=== PATIENT | male | born 1960 | race Caucasian/White ===

== ENCOUNTER 2017-03-20 15:55 | Inpatient (IN) | payer MEDICARE ==
[2017-03-20] MEDS ORDERED: IOPAMIDOL 370 (76%) 100 ML VIAL IV ONE (15:56)
[2017-03-20 16:48] LABS: ABSOLUTE NEUTROPHIL COUNT 13.7 K/mm3 (1.8-7.7); BASO # 0.1 K/mm3 (0.0-0.2); BASO % 0.4 % (0.2-1.0); HEMATOCRIT 41.8 % (32.0-52.0); HEMOGLOBIN 14.5 gm/l (14.0-18.0); IMM NEUT # 0.1 K/mm3 (0-0.2); IMM NEUT% 0.6 % (0-1); LYMPH # 1.5 (1.0-4.8); LYMPH % 9.2 % (15-45); MEAN CELL VOLUME 83.4 fl (80.0-94.0); MEAN CORPUSCULAR HEMOGLOBIN 28.9 pg (27.0-31.0); MEAN CORPUSCULAR HGB CONC 34.7 g/dl (33.0-37.0); MEAN PLATELET VOLUME 10.4 fl (7.4-10.4); MONO # 0.8 (0.0-0.8); NEUT % 84.8 % (43-75); PLATELET COUNT 327 K/mm3 (130-400)
[2017-03-20] MEDS ORDERED: LACTATED RINGERS 1,000 ML ONE ×2 (16:49→18:06)
[2017-03-20] MEDS ORDERED: ONDANSETRON 4 MG/2ML 2 ML VIAL ONE (16:49)
[2017-03-20] MEDS ORDERED: HYDROMORPHONE HCL 1 MG/ML SYRINGE ONE (16:57)
[2017-03-20 16:59] LABS: VENOUS BLOOD GAS BASE EXCESS -3.9 mmol/L (-2.0-2.0); VENOUS BLOOD GAS HCO3 22.1 mmol/L (22.0-27.0)
[2017-03-20 17:01] LABS: ALB/GLOB RATIO 1.4 (>1.0); ALBUMIN 4.5 gm/dL (3.5-5.7); CALCIUM 9.6 mg/dL (8.6-10.3)
[2017-03-20 17:01] LABS: URINE APPEARANCE CLEAR; URINE BILIRUBIN NEGATIVE (NEGATIVE); URINE BLOOD 2+ (NEGATIVE); URINE COLOR YELLOW; URINE GLUCOSE (UA) 3+ (NEGATIVE); URINE LEUKOCYTE ESTERASE NEGATIVE (NEGATIVE); URINE NITRITE NEGATIVE (NEGATIVE); URINE PROTEIN 2+ (NEGATIVE); URINE UROBILINOGEN NORMAL (0-1 mg/dl)
[2017-03-20 17:18] LABS: URINE BACTERIA TRACE; URINE EPITHELIAL CELLS FEW /hpf; URINE WBC RARE /hpf
--- NOTE | 2017-03-20 17:32 | CT ---
Exam Type: ABD/PELVIS W/ CON Date and Time: 03/20/2017 4:49 PM Clinical information: Abdomen pain with nausea and vomiting. Comparison: 06/14/2016. Procedure: Imaging device: [employer] [address] scanner 1 mm axial images were obtained through the abdomen and pelvis. Stacked reconstructed 3, 4 and 5 mm images were photographed in the axial coronal and sagittal planes. No oral contrast was utilized for this examination. 100 ml of Isovue-370 was injected intravenously. Exam: with intravenous contrast. FINDINGS: Lung bases:The visualized lung bases appear to be appropriate with no mass, effusion or consolidation visualized. Liver: There is note made of biliary prominence within the central aspect of the right hepatic lobe, similar to the appearance on previous examination. Spleen: The spleen is homogeneous and does not appear to be enlarged. Gallbladder: Normal without enlargement or evidence of adjacent inflammatory changes. Pancreas: A significant dystrophic calcification of the pancreatic body and tail is present suggesting findings of chronic pancreatitis. The appearance is similar to that seen on prior examination. Adrenal glands: Normal without enlargement or evidence of adjacent inflammatory changes. Abdominal aorta: Dense atherosclerotic vascular calcification is present. There is no focal aneurysm visualized. Kidneys: The peripheral renal contour is somewhat irregular which may reflect areas of parenchymal scarring. A low-attenuation focus extending posteriorly from the right kidney is slight increase in size when compared to the prior exam though may reflect a renal cyst. No evidence of hydronephrosis is seen. Bowel structures: There are postsurgical changes identified with bowel suture seen involving the colon within the right quadrant. No definite evidence to suggest obstruction is currently visualized. There is moderate fluid distention of the stomach noted. A loop of bowel is identified extending into the patient's umbilical hernia best seen on axial image 56. Appendix: Likely absent. Bladder: The bladder is of normal contour. No wall thickening or significant distention is observed. Hernia: Fat filled bilateral inguinal hernias are also visualized, left greater than right. Adenopathy: No significant enlarged adenopathy is visualized. Osseous structures: Multilevel lumbar discogenic degenerative changes are present at all lumbar levels. Pelvic structures: No discrete pelvic abnormalities are visualized in this examination. IMPRESSION: 1. A fat filled umbilical hernia with extension of a bowel loop into the hernia sac. No associated obstruction is visualized. 2. Postsurgical changes suggesting prior partial colectomy. The appendix is likely surgically absent. 3. Moderate fluid distention of the stomach. 4. Irregularity of the peripheral contour of both kidneys which may reflect areas of renal scarring. 5. A low-attenuation focus along the posterior aspect of the right kidney, increased from the prior examination. The attenuation values are indeterminate. Ultrasonographic correlation is recommended to exclude a solid mass. 6. Fat filled bilateral inguinal hernias, left greater than right. 7. Stable prominence of the central intrahepatic biliary tree. 8. Numerous dystrophic pancreatic calcifications suggesting chronic pancreatitis, also stable from the prior exam. 9. A 3.1 cm fluid collection within the subcutaneous tissues of the anterior left lower chest, likely a sebaceous cyst. 10. Multilevel lumbar degenerative changes.
[2017-03-20] MEDS ORDERED: INSULIN REGULAR HUMAN (DOSE) 100 UNITS/1 ML ONE (18:42)
[2017-03-20] MEDS ORDERED: MENTHOL/CETYLPYRD 1 EACH LOZENGE PO PRN (19:32)
[2017-03-20] MEDS ORDERED: BLISTEX LIPSTICK 1 EACH TP PRN (19:32)
[2017-03-20] MEDS ORDERED: SODIUM CHLORIDE 0.9% 100 ML IV PRN (19:32)
[2017-03-20 20:21] VITALS: BMI 25.7
[2017-03-20] MEDS ORDERED: PUMP TUBING ONE (20:45)
[2017-03-20] MEDS: PANTOPRAZOLE SODIUM 40 MG VIAL IV SCH (20:52)
[2017-03-20] MEDS: MORPHINE SULFATE 2 MG/ML SYRINGE IV PRN ×2 (20:52→23:17)
[2017-03-20] MEDS: ONDANSETRON 4 MG/2ML 2 ML VIAL IV PRN (20:52)
[2017-03-20] MEDS: NS/Potassium Chlor 20 mEq 1,000 ML IV SCH (20:52)
[2017-03-20] MEDS ORDERED: IV START KIT ONE ×2 (21:37→23:55)
[2017-03-20] MEDS: INSULIN ASPART (DOSE) 100 UNITS/1 ML SUB-Q PRN (23:29)
[2017-03-21] MEDS: MORPHINE SULFATE 2 MG/ML SYRINGE IV PRN ×5 (00:47→22:01)
[2017-03-21] MEDS: ONDANSETRON 4 MG/2ML 2 ML VIAL IV PRN (01:04)
[2017-03-21 06:30] LABS: ABSOLUTE NEUTROPHIL COUNT 12.2 K/mm3 (1.8-7.7); BASO # 0.1 K/mm3 (0.0-0.2); BASO % 0.4 % (0.2-1.0); EOS # 0.1 (0.0-0.5); EOS % 0.5 % (0.9-2.9); HEMATOCRIT 39.7 % (32.0-52.0); HEMOGLOBIN 13.7 gm/l (14.0-18.0); IMM NEUT # 0.2 K/mm3 (0-0.2); IMM NEUT% 0.9 % (0-1); LYMPH # 2.9 (1.0-4.8); LYMPH % 17.3 % (15-45); MEAN CELL VOLUME 83.8 fl (80.0-94.0); MEAN CORPUSCULAR HEMOGLOBIN 28.9 pg (27.0-31.0); MEAN CORPUSCULAR HGB CONC 34.5 g/dl (33.0-37.0); MEAN PLATELET VOLUME 10.2 fl (7.4-10.4); MONO # 1.4 (0.0-0.8); MONO % 8.1 % (4-12); NEUT % 72.8 % (43-75); PLATELET COUNT 298 K/mm3 (130-400); RED CELL DISTRIBUTION WIDTH 12.9 % (11.5-14.5)
[2017-03-21 06:46] LABS: ALB/GLOB RATIO 1.4 (>1.0); ALBUMIN 3.9 gm/dL (3.5-5.7); CALCIUM 9.3 mg/dL (8.6-10.3)
--- NOTE | 2017-03-21 06:50 | US ---
Name: DENIA TORRES Exam: Ultrasound right kidney Comparison: 06/24/2012 Clinical history: Indeterminant right renal nodule on CT dated 03/20/2017 Findings: Ultrasound of the right kidney was performed. Kidney size is within normal limits at 10.0 x 6.3 x 6.0 cm. Resistive index is mildly increased at 0.78. Off of the posterior lateral margin of the right kidney, there is a 2.8 x 2.5 x 2.1 cm oval vascular structure which is nearly isoechoic to adjacent renal parenchyma. Kidney is quite lobulated. Given the associated blood flow, solid renal mass must be excluded. This does not represent a cyst. MRI with contrast would be helpful for further characterization. Impression: 2.8 x 2.5 x 2.1 cm solid right renal lesion consistent with recent CT. Neoplastic lesion must be excluded. MRI with contrast would be helpful. Note: Findings were discussed between Jaqui and Dr. Strickland at 0128 hours .
[2017-03-21] MEDS: NS/Potassium Chlor 20 mEq 1,000 ML IV SCH (07:08)
--- NOTE | 2017-03-21 07:40 | PDOC43 ---
- Subjective Chief Complaint: abdominal pain Abdominal pain is better and nausea has resolved. Very thirsty but no BM or passing gas. - Objective Vital Signs Temperature 97.9 F 03/21/17 01:20 Pulse Rate 86 03/21/17 01:20 Respiratory Rate 18 03/21/17 01:42 Blood Pressure 152/80 03/21/17 01:20 O2 Saturation by Pulse Oximetry 95 03/21/17 01:20 Oxygen Delivery Method Room Air Oxygen Flow Rate 0 Intake and Output 03/20/17 03/21/17 03/22/17 06:59 06:59 06:59 Intake Total 150 Output Total 450 Balance -300 General: Alert, Oriented x3, Cooperative, No Acute Distress HEENT: Mucous membr. moist/pink Lungs: Clear to Auscultation Bilaterally Cardiovascular: Regular Rate and Rhythm Abdomen: Soft, Tenderness (mild), Masses (soft umbilical hernia), Normal Bowel Sounds Extremities: Normal Pulses, No Edema Skin: Normal Color Neurological: Normal Speech Psych/Mental Status: Normal Mood Laboratory 03/21/17 05:30 03/21/17 05:30 03/21/17 03/21/17 03/20/17 05:30 03:18 23:24 Anion Gap 17 H POC Capillary Glucose 149 H 227 H Current Medications: Current meds reviewed in EMR. - Problems: Assessment/Plan (1) Abdominal pain, acute Status: AcuteAssessment/Plan: Acute on chronic abdominal pain with nausea and vomiting in setting of chronic short gut syndrome. No evidence of acute bowel obstruction. Improved, advance diet slowly. (2) SIRS (systemic inflammatory response syndrome) Status: AcuteAssessment/Plan: Appears to be due to acute on chronic abdominal pain and uncontrolled diabetes. No evidence of acute infectious process. WBC remains elevated but no fever, tachycardia or tachypnea today. (3) Short bowel syndrome Status: ChronicAssessment/Plan: Associated with chronic diarrhea and chronic abdominal pain. No BM for two days. (4) Diabetes type 2, uncontrolled Qualifiers: Diabetes mellitus complication status: with neurologic complications Diabetes mellitus complication detail: with polyneuropathy Diabetes mellitus intermediate school teacher insulin use: with intermediate school teacher use Qualifier Code: (E11.42) Type 2 diabetes mellitus with diabetic polyneuropathy Status: Chronic Assessment/Plan: [id number] due to inadequate insulin treatment (one dose once a day and unsure what insulin was being used). Start lantus, continue aspart and adjust as indicated. (5) HTN (hypertension), benign Status: ChronicAssessment/Plan: untreated, start lisinopril (6) Kidney mass Status: AcuteAssessment/Plan: f/u ultrasound remains abnormal with suggestion of malignancy. MRI ordered for tomorrow, given patient's history of medical non-compliance, he is not likely to get this done if deferred to outpatient f/u. (7) Medically noncompliant Status: ChronicAssessment/Plan: Complicates care. He needs to be re-established with PCP and case management through PCP office. (8) Anxiety disorder Qualifiers: Anxiety disorder type: generalized anxiety disorder Qualifier Code: ( F41.1) Generalized anxiety disorder Status: ChronicAssessment/Plan: Stable, but may need PRN lorazapam. VTE Prophylaxis: mechanical only due to the possibility of needing urgent abdominal surgery. Disposition: Likely home in 1-2 days.
[2017-03-21] MEDS: INSULIN ASPART (DOSE) 100 UNITS/1 ML SUB-Q PRN ×2 (08:18→18:26)
[2017-03-21] MEDS: INSULIN GLARGINE (DOSE) 100 UNITS/ML UNIT SUB-Q SCH (08:18)
[2017-03-21] MEDS: LISINOPRIL 10 MG TABLET PO SCH (08:19)
--- NOTE | 2017-03-21 10:25 | HP ---
DENIA CASILLAS [id number] DATE OF : 1960 DATE OF ADMISSION: 03/20/2017 IDENTIFICATION: Mr. Casillas is a 56-year-old patient of Dr. Cisneros. He was last hospitalized 06/14/2016. He had one follow up visit at [facility] in July and has not been back. CHIEF COMPLAINT: Abdominal pain. HISTORY OF PRESENT ILLNESS: Mr. Casillas has chronic abdominal pain, but reports that it has been much worse for the last 2 weeks. It is a cramping pain that comes and goes, but today he has had pain severe enough that he is not able to sit still. He has had nausea and vomited about 1630. He has chronic diarrhea. His last bowel movement was yesterday and was black, but otherwise bowels have been normal per his pattern. He does feel like he has had some chills, but not documented fever. He was evaluated in the emergency department, and found to have hyperglycemia, and elevated white blood cell count. CT scan of the abdomen did not show an acute bowel obstruction, but due to his abdominal pain and abnormal laboratories he was referred to the Hospitalist service. REVIEW OF SYSTEMS: HEENT: He does report feeling faint, no loss of consciousness, chronic hearing loss. Respiratory: He reports some dyspnea, no cough. Cardiac: No chest pain or palpitations. Gastrointestinal: A per history of present illness. Genitourinary: No dysuria, or urgency. He has had frequent urination, but some urinary hesitancy. Musculoskeletal: No specific complaints. Constitutional: Chills. No documented fever. He thinks he has lost 10 pounds recently. PAST MEDICAL HISTORY: 1. Diabetes mellitus type 2, uncontrolled and complicated by peripheral neuropathy. 2. Benign essential hypertension. 3. Hyperlipidemia. 4. 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 5. Generalized anxiety disorder. 6. Osteoarthritis. 7. Dyslipidemia. 8. Chronic kidney disease borderline between stage II and III with a baseline creatinine of 1.1 to 1.3. This is presumably secondary to this diabetes. PAST SURGICAL HISTORY: 1. Multiple abdominal surgeries and partial colectomies associated with necrotizing enteritis as an . 2. Small-bowel resection perforation and peritonitis in December [address] Marco A Cantor. 3. Exploratory laparotomy. 4. Right foot surgery after crush injury in 2002. 5. Upper and lower endoscopy done by Dr. Layne in 2013. ALLERGIES: NONE KNOWN. MEDICATIONS: He does say his son is giving him a dose of insulin once a day. He does not know what kind of insulin, or how much. He wonders if it is the wrong kind of insulin. He is otherwise out of medications, and not taking anything else. HABITS: He has an extensive smoking history, but quit smoking 2 years ago and has not used tobacco since then. He denies alcohol use. He does smoke marijuana. SOCIAL HISTORY: He is . He lives with his son in [place]. He is disabled. FAMILY HISTORY: Mother had ovarian cancer. His brother had a pulmonary embolism. PHYSICAL EXAMINATION: GENERAL: This is an agitated uncomfortable gentleman. He looks much older than his 56 years. VITAL SIGNS: Temperature is 98.3 degrees Fahrenheit. Pulse is 107. Blood pressure is elevated at 193/96. Respiratory rate is 18. Oxygen saturation is 96% on room air. HEENT: Pupils equal, round, and reactive. Extraocular muscles intact. Mild exophthalmus. Oropharynx: Poor dentition. CHEST: Clear to auscultation. HEART: Regular, no murmur. ABDOMEN: Soft with diffuse mild tenderness. No guarding, or rebound. Extensive scaring from his previous surgeries, easily reducible umbilical hernia. EXTREMITIES: Good dorsalis pedis pulses. No edema. NEUROLOGIC: He is alert and oriented with no focal deficits. LABORATORY DATA: White blood cell count is 16.1 with 85% neutrophils, hemoglobin and hematocrit 14.5 and 41.8, and platelets 237. Venous blood gas: pH 7.326, pCO2 of 43.2, pO2 27.9, and lactate 1.9. Sodium is 135, potassium 3.7, chloride 96, CO2 of 22, BUN 14, creatinine 1.3, and glucose 508. Alkaline phosphatase is 107. Liver enzymes are otherwise normal. Albumin is 4.5. Lipase is normal at 17. Urinalysis with specific gravity of 1.020, 2+ protein, 3+ glucose, 2+ ketones, 2+ blood, negative microscopic. DIAGNOSTIC IMAGIN. CT scan of the abdomen and pelvis shows fat filled umbilical hernia with bowel loop in the hernia sac, but not obstruction. Postsurgical changes, moderate fluid distention of the stomach, irregular peripheral contour of both kidneys with low attenuation focus on the right kidney, ultrasound follow up recommended. Fat filled bilateral inguinal hernias, stable prominence of intrahepatic biliary tree, evidence of chronic pancreatitis stable. A left chest sebaceous cyst, and multiple level lumbar degenerative changes. ASSESSMENT: Mr. Casillas is a 56-year-old with medical noncompliance who presents with an exacerbation of chronic abdominal pain, diabetes out of control, and resulting in anion gap acidosis. He has systemic inflammatory response syndrome secondary to the out of control diabetes, but I do not see evidence of an acute infectious process. His chronic hypertension is out of control, and he has a kidney mass of uncertain behavior. PLAN: 1. Admit to med surge. 2. Nothing by mouth status, follow laboratories and abdominal exam. 3. Analgesic and antiemetic medication as necessary. 4. IV hydration and insulin to control blood sugar. 5. Renal ultrasound to follow up on the abnormality seen on CT scan. 6. Physical and occupational therapy evaluation and treatment. 7. Dietary consultation. 8. FULL CODE status. 9. Venous thromboembolism risk is moderate, but we will use mechanical prophylaxis as he could potentially need surgery. 10. Social work consult and he will need to be reestablished with primary care and with the care management program through the clinic hopefully to improve his follow up, and compliance. BRENDA/jaci
[2017-03-21] MEDS ORDERED: ACETAMINOPHEN 500 MG TABLET PO PRN (12:40)
[2017-03-21] MEDS ORDERED: ACETAMINOPHEN 500 MG TABLET ONE (12:42)
[2017-03-21] MEDS: PANTOPRAZOLE SODIUM 40 MG VIAL IV SCH (22:00)
[2017-03-22] MEDS: NS/Potassium Chlor 20 mEq 1,000 ML IV SCH ×5 (00:34→11:49)
[2017-03-22] MEDS: MORPHINE SULFATE 2 MG/ML SYRINGE IV PRN ×3 (06:16→20:29)
[2017-03-22 06:33] LABS: ABSOLUTE NEUTROPHIL COUNT 6.2 K/mm3 (1.8-7.7); BASO # 0.1 K/mm3 (0.0-0.2); EOS # 0.1 (0.0-0.5); EOS % 1.3 % (0.9-2.9); HEMATOCRIT 37.9 % (32.0-52.0); HEMOGLOBIN 12.6 gm/l (14.0-18.0); IMM NEUT # 0.1 K/mm3 (0-0.2); IMM NEUT% 1.3 % (0-1); LYMPH # 1.8 (1.0-4.8); LYMPH % 19.8 % (15-45); MEAN CELL VOLUME 85.7 fl (80.0-94.0); MEAN CORPUSCULAR HEMOGLOBIN 28.5 pg (27.0-31.0); MEAN CORPUSCULAR HGB CONC 33.2 g/dl (33.0-37.0); MONO # 0.7 (0.0-0.8); MONO % 8.2 % (4-12); NEUT % 68.4 % (43-75); PLATELET COUNT 283 K/mm3 (130-400); RED CELL DISTRIBUTION WIDTH 13.5 % (11.5-14.5)
[2017-03-22 06:59] LABS: CALCIUM 8.6 mg/dL (8.6-10.3)
[2017-03-22] MEDS: INSULIN ASPART (DOSE) 100 UNITS/1 ML SUB-Q PRN ×4 (07:37→21:13)
[2017-03-22] MEDS: LISINOPRIL 10 MG TABLET PO SCH ×2 (07:37→09:36)
[2017-03-22] MEDS: INSULIN GLARGINE (DOSE) 100 UNITS/ML UNIT SUB-Q SCH (09:35)
[2017-03-22] MEDS: PANTOPRAZOLE SODIUM 40 MG VIAL IV SCH (20:28)
--- NOTE | 2017-03-22 23:31 | PDOC43 ---
- Subjective Chief Complaint: abdominal pain Subjective: Reports Pain Tolerable, Reports Tolerating Diet Well - Objective Vital Signs Temperature 99.3 F 03/22/17 20:37 Pulse Rate 89 03/22/17 20:37 Respiratory Rate 16 03/22/17 20:37 Blood Pressure 165/95 03/22/17 20:37 O2 Saturation by Pulse Oximetry 96 03/22/17 20:37 Oxygen Delivery Method Room Air Oxygen Flow Rate 0 Intake and Output 03/21/17 03/22/17 03/23/17 06:59 06:59 06:59 Intake Total 150 3054 Output Total 450 1850 Balance -300 1204 General: Alert, Oriented x3, Cooperative, No Acute Distress HEENT: Mucous membr. moist/pink Lungs: Clear to Auscultation Bilaterally Cardiovascular: Regular Rate and Rhythm Abdomen: Soft, Normal Bowel Sounds, Non-Distended, No Tenderness Extremities: No Edema Laboratory 03/22/17 05:30 03/22/17 05:30 03/22/17 03/22/17 03/22/17 20:53 18:09 11:40 RBC POC Capillary Glucose 256 H 181 H 238 H % Immature Granulocyt 03/22/17 03/22/17 07:25 05:30 RBC 4.42 L POC Capillary Glucose 191 H % Immature Granulocyt 1.3 H Current Medications: Current meds reviewed in EMR. - Problems: Assessment/Plan (1) Abdominal pain, acute Status: AcuteAssessment/Plan: Acute on chronic abdominal pain with nausea and vomiting in setting of chronic short gut syndrome. No evidence of acute bowel obstruction. Improved, advance diet slowly. (2) Kidney mass Status: AcuteAssessment/Plan: f/u ultrasound remains abnormal with suggestion of malignancy. MRI ordered for today, given patient's history of medical non-compliance, he is not likely to get this done if deferred to outpatient f/u. Result is pending (3) Short bowel syndrome Status: ChronicAssessment/Plan: Associated with chronic diarrhea and chronic abdominal pain. No BM for two days. (4) SIRS (systemic inflammatory response syndrome) Status: AcuteAssessment/Plan: Appears to be due to acute on chronic abdominal pain and uncontrolled diabetes. No evidence of acute infectious process. WBC improved and no fever, tachycardia or tachypnea today. (5) Diabetes type 2, uncontrolled Qualifiers: Diabetes mellitus complication status: with neurologic complications Diabetes mellitus complication detail: with polyneuropathy Diabetes mellitus alf insulin use: with alf use Qualifier Code: (E11.42) Type 2 diabetes mellitus with diabetic polyneuropathy Status: Chronic Assessment/Plan: [id number] due to inadequate insulin treatment (one dose once a day and unsure what insulin was being used). Started lantus, continue aspart and adjust as indicated. Will need to educate his son on insulin administration and correction scale but no family has shown up today. (6) HTN (hypertension), benign Status: ChronicAssessment/Plan: untreated, start lisinopril (7) Medically noncompliant Status: ChronicAssessment/Plan: Complicates care. He needs to be re-established with PCP and case management through PCP office. (8) Anxiety disorder Qualifiers: Anxiety disorder type: generalized anxiety disorder Qualifier Code: ( F41.1) Generalized anxiety disorder Status: ChronicAssessment/Plan: Stable, but may need PRN lorazapam in hospital - consider ssri at discharge. VTE Prophylaxis: mechanical only due to the possibility of needing urgent abdominal surgery. Disposition: Likely home in am
[2017-03-23] MEDS: NS/Potassium Chlor 20 mEq 1,000 ML IV SCH ×2 (00:15→04:59)
[2017-03-23] MEDS: MORPHINE SULFATE 2 MG/ML SYRINGE IV PRN (06:00)
[2017-03-23 08:07] VITALS: BP 114/79
[2017-03-23] MEDS: LISINOPRIL 10 MG TABLET PO SCH (08:09)
[2017-03-23] MEDS: INSULIN ASPART (DOSE) 100 UNITS/1 ML SUB-Q PRN (08:10)
[2017-03-23] MEDS ORDERED: INSULIN GLARGINE (DOSE) 100 UNITS/ML UNIT SUB-Q SCH (09:00)
--- NOTE | 2017-03-23 11:41 | MRI ---
EXAMINATION: Abdominal MRI without and with contrast. CLINICAL INDICATION: Assess renal mass. COMPARISON: Prior CT scan dated 03/20/2017. TECHNIQUE: Pre and dynamic post contrast evaluation of the abdomen was performed on a 1.5 Olga Lidia scanner. The following sequences were obtained: Axial and Coronal T1 and T2 Weighted Images were acquired. Axial diffusion weighted sequence images were acquired. Fat suppressed T1 weighed axial and coronal dynamic images were obtained. A total of 20 ml of MultiHance was administered intravenously. Image quality is of limited diagnostic value. Multiple images are are degraded due to motion artifact. Also postcontrast images were not obtained dynamically. Patient needed multiple bathroom breaks. FINDINGS: The posterior upper pole the right kidney and there is an exophytic lesion that measures 1.9 x 2.0 cm. This exhibits low T2 signal character 6 and intermediate T1 signal changes. Following medication and contrast this appears to exhibit early arterial enhancement with some enhancing septations suggested centrally. Some peripheral nodularity is suggested as well. The remainder the renal cortices are otherwise unremarkable and similar the prior CT scans. Lobulation is noted. Small cortical cyst involves the posterior aspect of the lower pole the left kidney as well. A retroaortic left renal vein is noted. Visualized segments of the bladder on the coronal images appear grossly unremarkable. Minimal atherosclerotic changes of abdominal aorta are evident. There is no adjacent adenopathy appreciated. The adrenals are unremarkable. The liver, biliary system, spleen, and pancreas are within normal limits. No free fluid is identified. The osseous structures are within normal limits. Resolution of the overlying soft tissues are limited due to motion artifact. IMPRESSION: Limited evaluation due to motion artifact and limited dynamic enhancement. There is apparent enhancement of the lesion within the right lower pole measuring up to 2 cm in diameter. Findings are suspicious for neoplasm. Enhancing septation of a proteinaceous cyst though considered less likely may give a similar appearance. A retroaortic left renal vein is noted. No periaortic adenopathy is identified. There is no gross evidence of metastatic lesions involving the abdomen. As a multiphase dynamic renal CT scan can be acquired more rapidly, this should be considered for further evaluation of this lesion. This would reduce motion artifact.
--- NOTE | 2017-03-23 12:47 | DS ---
Devendra Casillas DATE OF ADMISSION: 03/20/2017 DATE OF DISCHARGE: 03/23/2017 DISCHARGE DIAGNOSES: 1. Uncontrolled adult onset diabetes. 2. Chronic nonspecific lower abdominal pain with chronic short gut syndrome, nausea, and vomiting. 3. Systemic inflammatory response syndrome, unclear etiology. 4. Chronic essential hypertension. 5. 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 6. History of medical noncompliance. 7. Possible anxiety disorder. PROCEDURES PERFORMED DURING THE HOSPITALIZATION: Included a CT of the abdomen and pelvis, an ultrasound of the kidney's and abdominal MRI. The abdominal MRI result is still pending. Renal ultrasound showed a solid right renal lesions measuring 2.8 x 2.5 x 2.1 cm worrisome for neoplastic process. TO SUMMARIZE THE ADMISSION AND HOSPITAL COURSE: The patient is a 56-year-old male with a long history of poorly controlled diabetes, also history of chronic abdominal pain, short gut syndrome with chronic diarrhea and some mild chronic kidney disease felt to be due to his diabetes. He presented with complaints of lower abdominal pain and uncontrolled diabetes and was found to have leukocytosis with a white count of 16,000, elevated creatinine of 1.3, lactate of 1.9, hematuria, glucosuria, and ketonuria. He was admitted to the hospitalist service initially managed on med/surg with insulin. Over the course of his hospital stay he was titrated upward on Lantus and on NovoLog with marked improved control of his blood sugars. He had improvement in his electrolyte abnormalities, his leukocytosis, and his abdominal pain. He had delay in his discharge to facilitate his abdominal MRI which was performed on March 22 and the results are still pending. He was felt to be medically stable for discharge on March 23. PHYSICAL EXAMINATION: VITALS: At discharge showed a temperature of 98.0, pulse 69, blood pressure 114/79, respirations 16, oxygen saturation of 95% on room air. Body mass index 25.5, weight is 76.2 kg. GENERAL: This is a well-developed, well-nourished elderly male in no acute distress. HEENT: Unremarkable. LUNGS: Clear to auscultation bilaterally. CARDIOVASCULAR: Reveals a regular rate and rhythm without a murmur. ABDOMEN: Soft, nontender, nondistended with positive bowel sounds. LABORATORY STUDIES: Last done on March 22 showed a normal white count of 9, hemoglobin of 12.6, and a platelet count of 283,000. Chem profile on March 22 showed a sodium of 139, potassium 4.2, anion gap of 12, bicarb of 23, BUN 9, creatinine of 1.0. DISPOSITION: Home. DISCHARGE CONDITION: Good. FOLLOW UP: He has a follow up appointment scheduled with Dr. Dorian Cisneros on April 01 at 8:45 a.m. At follow up the patient would benefit from review of his MRI result and referral as indicated to urology. DISCHARGE MEDICATIONS: 1. He is started on Lantus insulin 20 units subcutaneous every morning. 2. He is prescribed NovoLog insulin with a prandial dose of 5 units before every meal with additional supplemental insulin following a moderate correction scale on top of the scheduled prandial insulin. 3. He is prescribed lisinopril 10 mg daily as well. JOB: [id number] CC: Dr. Dorian Cisneros
== END 2017-03-23 11:10 | disposition home or self-care (01) | DRG 638 ==
LOC: ED 15:55 → MS 18:40
PROVIDERS: ADMIT Family Medicine; ATTEND Family Medicine
DX: E11.65 Type 2 diabetes mellitus with hyperglycemia (principal); R65.10 Systemic inflammatory response syndrome (SIRS) of non-infectious origin without acute organ dysfunction; I10 Essential (primary) hypertension; D41.01 Neoplasm of uncertain behavior of right kidney; Z91.19 Patient's noncompliance with other medical treatment and regimen; F41.0 Panic disorder [episodic paroxysmal anxiety]; E78.5 Hyperlipidemia, unspecified; K42.9 Umbilical hernia without obstruction or gangrene; Z91.14 Patient's other noncompliance with medication regimen